=== PATIENT | female | born 1990 | race Two or more races ===

== ENCOUNTER 2022-09-10 02:50 | Emergency (ER) | payer OTHER ==
[~2022-09-10] VITALS: Ht 162.6 cm; Wt 59.9 kg
== END 2022-09-10 08:55 | disposition home or self-care (01) ==
LOC: ER 02:50
DX: B34.9 Viral infection, unspecified (principal); R50.9 Fever, unspecified; Z20.822 Contact with and (suspected) exposure to COVID-19